=== PATIENT | female | born 1980 | race Caucasian/White ===

== ENCOUNTER 2018-08-02 20:24 | Emergency (ER) | payer OTHER ==
[2018-08-02 20:30] VITALS: BP 104/62; PULSE 83; TEMP 98.3; BMI 19.3
[2018-08-02] MEDS ORDERED: PANTOPRAZOLE 40 MG TABLET (FP) PO ONE (21:28)
[2018-08-02] MEDS ORDERED: RANITIDINE HCL 150 MG TABLET (FP) PO ONE (21:28)
--- NOTE | 2018-08-02 21:36 | PDOC ---
History of Present Illness - General History Source: Patient Exam Limitations: No Limitations <Juan Diaz - Last Filed: 08/02/18 21:39> - History of Present Illness Initial Comments: 08/02/18 21:42 The patient is a 38 year old female, with no significant PMH, who presents to the emergency department with 1 month of intermittent epigastric pain. The patient states the intermittent epigastric pain begins approx 1-2 hours after eating, described as a burning pain and radiates to her back. The patient states she was recently treated for H. pylori and completed her antibiotics 4 days ago on Sunday with relief of her symptoms. However, the patient states since finishing the antibiotics she has began to experience the intermittent epigastric pain which she states feels exactly the same as her prior symptoms. The patient denies chest pain, shortness of breath, headache and dizziness. Denies fever, chills, nausea, vomit, diarrhea and constipation. Denies dysuria, frequency, urgency and hematuria. Allergies: NKA <Mohinder Craven - Last Filed: 08/02/18 21:50> - General Chief Complaint: Pain Stated Complaint: ABDOMINAL PAIN Time Seen by Provider: 08/02/18 20:47 Past History - Past Medical History Asthma: No Cancer: No Cardiac Disorders: No COPD: No Diabetes: No HTN: No Seizures: No Thyroid Disease: No - Reproductive History (#): 1 Para: 1 - Suicide/Smoking/Psychosocial Hx Smoking History: Never smoked Hx Alcohol Use: No Drug/Substance Use Hx: No Hx Substance Use Treatment: No <Juan Diaz - Last Filed: 08/02/18 21:39> <Mohinder Craven - Last Filed: 08/02/18 21:50> - Past Medical History Allergies/Adverse Reactions: Allergies Allergy/AdvReac Type Severity Reaction Status Date / Time No Known Allergies Allergy Verified 08/02/18 20:30 Home Medications: Ambulatory Orders Ferrous Gluconate [Iron] 256 mg PO BID 08/27/16 Vit No.130/Iron/Folic [ Vitamins] 1 each PO DAILY 08/27/16 Ibuprofen [Motrin -] 600 mg PO QID #28 tablet 09/03/16 Famotidine [Pepcid] 20 mg PO BID PRN #20 tablet 08/02/18 Pantoprazole Sodium [Protonix] 40 mg PO DAILY #30 tablet. 08/02/18 Review of Systems - Review of Systems Comments:: 08/02/18 21:42 GENERAL/CONSTITUTIONAL: No fever or chills. No weakness. HEAD, EYES, EARS, NOSE AND THROAT: No change in vision. No ear pain or discharge. No sore throat. CARDIOVASCULAR: No chest pain or shortness of breath. RESPIRATORY: No cough, wheezing, or hemoptysis. GASTROINTESTINAL: (+) Epigastric abdominal pain. No nausea, vomiting, diarrhea or constipation. GENITOURINARY: No dysuria, frequency, or change in urination. MUSCULOSKELETAL: No joint or muscle swelling or pain. No neck or back pain. SKIN: No rash NEUROLOGIC: No headache, vertigo, loss of consciousness, or change in strength/ sensation. ENDOCRINE: No increased thirst. No abnormal weight change. HEMATOLOGIC/LYMPHATIC: No anemia, easy bleeding, or history of blood clots. ALLERGIC/IMMUNOLOGIC: No hives or skin allergy. <Mohinder Craven - Last Filed: 08/02/18 21:50> *Physical Exam - Vital Signs Last Vital Signs Temp Pulse Resp BP Pulse Ox 98.3 F 83 18 104/62 99 08/02/18 20:26 08/02/18 20:26 08/02/18 20:26 08/02/18 20:26 08/02/18 20:26 <Juan Diaz - Last Filed: 08/02/18 21:39> - Vital Signs Last Vital Signs Temp Pulse Resp BP Pulse Ox 98.3 F 83 18 104/62 99 08/02/18 20:26 08/02/18 20:26 08/02/18 20:26 08/02/18 20:26 08/02/18 20:26 - Physical Exam Comments: 08/02/18 21:42 GENERAL: Awake, alert, and fully oriented, in no acute distress HEAD: No signs of trauma EYES: PERRLA, EOMI, sclera anicteric, conjunctiva clear ENT: Auricles normal inspection, hearing grossly normal, nares patent, oropharynx clear without exudates. Moist mucosa NECK: Normal ROM, supple, no lymphadenopathy, JVD, or masses LUNGS: Breath sounds equal, clear to auscultation bilaterally. No wheezes, and no crackles HEART: Regular rate and rhythm, normal S1 and S2, no murmurs, rubs or gallops ABDOMEN: (+) Tenderness to palpation epigastric region. Soft, normoactive bowel sounds. No guarding, no rebound. No masses. [place] sign negative. EXTREMITIES: Normal range of motion, no edema. No clubbing or cyanosis. No cords, erythema, or tenderness NEUROLOGICAL: Cranial nerves II through XII intact. Normal speech, normal gait SKIN: Warm, Dry, normal turgor, no rashes or lesions noted. <Mohinder Craven - Last Filed: 08/02/18 21:50> Medical Decision Making - Medical Decision Making 08/02/18 21:39 A portion of this note was documented by scribe services under my direction. I have reviewed the details of the note, within reason, and agree with the documentation with the following case summary and management plan written by me. Patient treated in the ED. Nursing notes are reviewed and incorporated into the medical decision-making. Vital signs reviewed. Vital Signs Temp Pulse Resp BP Pulse Ox 98.3 F 83 18 104/62 99 08/02/18 20:26 08/02/18 20:26 08/02/18 20:26 08/02/18 20:26 08/02/18 20:26 38-year-old female patient with no medical history presents with epigastric pain. The patient has been under treatment for H. pylori and has completed her Triple Antibiotic therapy 4 days ago. She reports that the pain she was expressing today is exactly the same prior to her treatments. She reports that she felt significantly better with the medications. However, ever since stopping , she reports a running-like sensation and a metal-like taste in her throat. She reports that every time she eats, one or 2 hours later she started developing some epigastric discomfort. Denies right upper quadrant pain. Never had an endoscopy. Patient attempted to make a follow-up appointment with her doctor but they only have appointments on Sunday and Sunday. I strongly suspect that this is likely gastritis or peptic ulcer disease or gastric ulcer. Patient is not currently taking any medications. After lengthy discussion, I advised the patient should follow with an endoscopy. We'll initiate her on Protonix and Pepcid. I advised patient that if the pain is recurrent or worsens despite the medications that she should return to the ER. She verbalizes understanding and agrees with plan. <Juan Diaz - Last Filed: 08/02/18 21:39> *DC/Admit/Observation/Transfer <Juan Diaz - Last Filed: 08/02/18 21:39> - Attestations Scribe Attestion: 08/02/18 21:42 Documentation prepared by Mohinder Craven, acting as medical coding instructor for Juan Diaz MD. <Mohinder Craven - Last Filed: 08/02/18 21:50> Diagnosis at time of Disposition: Gastritis Qualifiers: Gastritis type: other gastritis Chronicity: acute Gastritis bleeding: without bleeding Qualified Code(s): K29.00 - Acute gastritis without bleeding - Discharge Dispostion Disposition: HOME Condition at time of disposition: Stable - Prescriptions Prescriptions: Famotidine [Pepcid] 20 mg PO BID PRN #20 tablet PRN Reason: GERD Pantoprazole Sodium [Protonix] 40 mg PO DAILY #30 tablet.dr - Referrals Referrals: Tomi Acosta MD [Staff Physician] - - Patient Instructions Printed Discharge Instructions: DI for Gastritis Additional Instructions: Please take 40 mg protonix daily. For additional relief, take a tablet of zantac every 12 hours as needed. Please make an appointment with a GI physician. Please minimize spicy and heavy, greasy foods. If you have uncontrollable pain, please return to the ER. Print Language: M[place]GR[place]
[2018-08-02] MEDS ORDERED: PANTOPRAZOLE 40 MG TABLET (FP) ONE (21:44)
[2018-08-02] MEDS ORDERED: RANITIDINE HCL 150 MG TABLET (FP) ONE (21:44)
== END 2018-08-02 21:58 | disposition home or self-care (01) ==
LOC: JER 20:24
DX: K29.00 Acute gastritis without bleeding (principal)
CPT/HCPCS: 99281-25

== ENCOUNTER 2018-11-14 23:26 | Emergency (ER) | payer OTHER ==
[2018-11-14 23:49] VITALS: BP 102/60; PULSE 75; TEMP 98; BMI 19.3
--- NOTE | 2018-11-15 00:21 | PDOC ---
History of Present Illness - General Chief Complaint: Pain Stated Complaint: ABDOMINAL PAIN Time Seen by Provider: 11/14/18 23:57 - History of Present Illness Initial Comments: Luz Martin is an otherwise healthy 38yo woman who presents with abdominal pain, worst in the RUQ, and nausea since yesterday. She reports that she has a history of gastritis/heartburn, but this feels that this is much worse than normal and in a different location. Usually, she has epigastric pain that improves when she eats then returns several hours later. This time, she has more severe pain that has waxed/waned throughout the day. The pain is worst in the RUQ, and she has associated nausea. She has not vomited and does not have a fever. Due to the nausea, she has not eaten much today. She reports that this pain first started yesterday. The day before, she had a headache and took ibuprofen several times, most recently yesterday morning. She then started to have the upper abdominal pain. She initially thought that she might need to have a BM, but she was unable to go at that time. However, she denies any diarrhea or constipation over the past few days and says that she has been having normal bowel movements. She also has no urinary symptoms. Other than the current pain, she has no chronic or recent complaints. Past History - Past Medical History Allergies/Adverse Reactions: Allergies Allergy/AdvReac Type Severity Reaction Status Date / Time No Known Allergies Allergy Verified 11/14/18 23:49 Home Medications: Ambulatory Orders Ferrous Gluconate [Iron] 256 mg PO BID 08/27/16 Vit No.130/Iron/Folic [ Vitamins] 1 each PO DAILY 08/27/16 Ibuprofen [Motrin -] 600 mg PO QID #28 tablet 09/03/16 Famotidine [Pepcid] 20 mg PO BID PRN #20 tablet 08/02/18 Pantoprazole Sodium [Protonix] 40 mg PO DAILY #30 tablet. 08/02/18 Asthma: No Cancer: No Cardiac Disorders: No COPD: No Diabetes: No HTN: No Seizures: No Thyroid Disease: No - Reproductive History (#): 1 Para: 1 - Suicide/Smoking/Psychosocial Hx Smoking History: Never smoked Have you smoked in the past 12 months: No Information on smoking cessation initiated: No Hx Alcohol Use: No Drug/Substance Use Hx: No Hx Substance Use Treatment: No Review of Systems - Review of Systems Comments:: General: No fevers, no chills, no weight or appetite change, no malaise HEENT: No changes in vision, no changes in hearing, no congestion, no sore throat CV: No chest pain, no palpitations, no LE edema Pulm: No SOB, no cough, no wheezing GI: +nausea, +RUQ pain, no change in bowel habits, no melena : No frequency, no urgency, no dysuria Musc: No back pain, no joint swelling, no recent injury Skin: No rash, no lesions, no erythema Endo: No excessive thirst, no heat/cold intolerance Heme: No unusual bruising or bleeding, no swollen glands Neuro: No syncope, no numbness/tingling, no focal weakness Vasc: No claudication Psych: No recent change in mood, no SI or HI *Physical Exam - Vital Signs Last Vital Signs Temp Pulse Resp BP Pulse Ox 98.0 F 75 16 102/60 100 11/14/18 23:47 11/14/18 23:47 11/14/18 23:47 11/14/18 23:47 11/14/18 23:47 - Physical Exam Comments: General: Comfortable, no acute distress HEENT: PERRL, EOMI, MMM, voice normal, normal neck ROM, no LAD Cards: RRR, no murmur appreciated Pulm: Comfortable on room air, clear to auscultation bilaterally Abd: Soft, nondistended. Some epigastric TTP, significant TTP in RUQ. No rigidity, no involuntary guarding : No CVA tenderness Ext: Atraumatic. No LE edema. ROM intact. Strength 5/5 and equal bilaterally Vasc: Extremities WWP. Palpable radial and pedal pulses bilaterally Skin: Normal color, no rashes or lesions Neuro: A&Ox3, CN grossly intact, normal speech, motor/sensory grossly intact and symmetric Psych: Mood appropriate to situation Moderate Sedation - Procedure Monitoring Vital Signs: Procedure Monitoring Vital Signs Temperature 98.0 F 11/14/18 23:47 Pulse Rate 75 11/14/18 23:47 Respiratory Rate 16 11/14/18 23:47 Blood Pressure 102/60 11/14/18 23:47 O2 Sat by Pulse Oximetry (%) 100 11/14/18 23:47 ED Treatment Course - LABORATORY CBC & Chemistry Diagram: 11/15/18 01:17 11/15/18 01:17 - RADIOLOGY Radiology Studies Ordered: Category Date Time Status ABDOMEN US -LIMITED [US] Stat Ultrasound 11/15/18 00:17 Ordered Medical Decision Making - Medical Decision Making 11/15/18 00:18 Luz Martin is an otherwise healthy 38yo woman who presents with abdominal pain, worst in the RUQ, and nausea since yesterday. - Previously diagnosed with gastritis, but she reports that this is different than her gastritis. More severe and in a different location. - May be due to known GERD v gastritis, was previously treated for h pylori and took ibuprofen several times 2 days ago for SARKAR prior to pain starting. However, given location of the pain could be cholecystitis, pancreatitis. No acute abdomen suggesting perforated ulcer. Unlikely to be cardiac in a young, otherwise healthy woman. - CBC, CMP, mag, phos, lipase, amylase, UA, urine preg, abd US ordered 11/15/18 01:19 - US completed. Shows multiple gallstones, largest 9mm. No wall thickening, no pericolesystic fluid, no duct dilation, no sonographic duron's sign - Labs pending, but will most likely d/c home with surgery follow up 11/15/18 02:00 - Acetaminophen ordered for continued pain - Labs completed. No abnormalities noted, no elevated bilirubin or LFTs. - Will d/c home with instructions for home care and surgery follow up. Discussed with Dr Bailey. Bree Camp PGY1 *DC/Admit/Observation/Transfer Diagnosis at time of Disposition: Cholelithiasis - Discharge Dispostion Disposition: HOME Condition at time of disposition: Stable Decision to Admit order: No - Referrals Referrals: [facility] [Provider Group] - Patient Instructions Printed Discharge Instructions: DI for Gallstones Additional Instructions: Discharge Instructions: - You were seen in the emergency department for abdominal pain. - You were found to have stones in your gallbladder. These stones can move around and cause pain if they block the duct out of the gallbladder. However, there is no sign of infection that would require antibiotics or surgery. - You may use over the counter medications such as acetaminophen (Tylenol) 650- 1000mg every 6-8 hours as needed for pain. Avoid ibuprofen (Advil, Motrin) and naproxen (Aleve) as you have a history of gastritis, and these can cause stomach irritation. - Avoid high-fat foods - You have been referred to [facility], Dr Ferrer or Dr De Anda, for follow up. You can make an appointment with them if your symptoms continue or worsen. - Seek immediate medical care if your symptoms worsen, your pain becomes constant, you develop fevers to 101F, or you start vomiting. Instrucciones de descarga: - Fuiste atendido en el servicio de urgencias por dolor abdominal. - Se encontr que fidel piedras en la vescula biliar. Estas piedras pueden moverse y causar dolor si bloquean el conducto que sale de la vescula biliar. Sin embargo, no hay signos de infeccin que requieran antibiticos o ciruga. - Puede usar medicamentos de venta samantha manny el paracetamol (Tylenol) 650- 1000mg cada 6-8 horas segn sea necesario para el dolor. Evite el ibuprofeno ( Advil, Motrin) y el naproxeno (Aleve) ya que tiene antecedentes de gastritis, que pueden causar irritacin estomacal. - Evite los alimentos altos en grasa - Se le sarkar remitido a [facility], al Dr. Ferrer o al Dr. De Anda, para weiss seguimiento. Puede hacer jose ulises con ellos si umm sntomas continan o empeoran. - Busque atencin mdica inmediata si umm sntomas empeoran, weiss dolor se vuelve opal, desarrolla fiebre hasta 101F o comienza a vomitar Print Language: PERSIAN - Post Discharge Activity Forms/Work/School Notes: Back to Work
--- NOTE | 2018-11-15 01:13 | PDOC ---
Attending Attestation - Resident Resident Name: Bree Camp - ED Attending Attestation I have performed the following: I have examined & evaluated the patient, The case was reviewed & discussed with the resident, I agree w/resident's findings & plan, Exceptions are as noted - HPI HPI: 11/15/18 01:24 38F no pmh here with RUQ abdominal pain a/w nausea since yesterday, px is constant, not associated with meals, no other complaints - Physicial Exam PE: 11/15/18 01:25 Agree with exam as documented by resident - Medical Decision Making 11/15/18 01:25 consider gastritis, rashida, pancreatitis f/u us, labs dispo per clinical course 11/15/18 07:20 us shows cholelithiasis w/o cholecystitis pain resolved f/u with gen surg clinic
[2018-11-15 01:26] LABS: BASO % 0.4 % (0-2.0); HEMATOCRIT 32.5 % (32.4-45.2); HEMOGLOBIN 11.1 GM/dL (10.7-15.3); LYMPH % 20.7 % (8-40); MCH 29.1 pg (25.7-33.7); MCHC 34.2 g/dl (32.0-36.0); MEAN CELL VOLUME 84.9 fl (80-96); MEAN PLT VOLUME 7.9 fl (7.5-11.1); NEUT % 67.9 % (42.8-82.8); PLATELET COUNT 240 K/MM3 (134-434); RBC 3.82 M/mm3 (3.60-5.2); RDW 13.7 % (11.6-15.6); WHITE BLOOD COUNT 6.1 K/mm3 (4.0-10.0)
[2018-11-15] MEDS ORDERED: ACETAMINOPHEN 325 MG TABLET (FP) PO ONE (01:48)
[2018-11-15 01:54] LABS: ALBUMIN 3.9 g/dl (3.4-5.0); ALK PHOS 89 U/L (45-117); AMYLASE 64 U/L (25-115); ANION GAP 6 MMOL/L (8-16); BILIRUBIN,TOTAL 0.3 mg/dL (0.2-1); BLOOD UREA NITROGEN 7 mg/dL (7-18); CALCIUM 8.5 mg/dL (8.5-10.1); CHLORIDE 104 mmol/L (98-107); CO2 28 mmol/L (21-32); CREATININE 0.5 mg/dL (0.55-1.3); GLUCOSE,RANDOM 91 mg/dL (74-106); LIPASE 100 U/L (73-393); MAGNESIUM 2.1 mg/dL (1.8-2.4); PHOSPHOROUS 3.3 mg/dL (2.5-4.9); POTASSIUM 3.7 mmol/L (3.5-5.1); SGOT/AST 16 U/L (15-37); SGPT/ALT 22 U/L (13-61); SODIUM 138 mmol/L (136-145); TOT PROT 7.3 g/dl (6.4-8.2)
[2018-11-15] MEDS ORDERED: ACETAMINOPHEN 325 MG TABLET (FP) ONE (01:54)
[2018-11-15 09:43] LABS: HCG,QUALITATIVE URINE Negative
[2018-11-15 09:49] LABS: URINE APPEARANCE CLEAR; URINE BILIRUBIN NEGATIVE (<2.0 mg/dL); URINE COLOR YELLOW; URINE GLUCOSE (UA) NEGATIVE (NEGATIVE); URINE KETONE 1+ (NEGATIVE); URINE LEUK ESTERASE NEGATIVE (NEGATIVE); URINE NITRITE NEGATIVE (NEGATIVE); URINE PROTEIN NEGATIVE (NEGATIVE); URINE UROBILINOGEN NEGATIVE mg/dL (0.2-1.0)
== END 2018-11-15 02:30 | disposition home or self-care (01) ==
LOC: JER 23:26
DX: K80.20 Calculus of gallbladder without cholecystitis without obstruction (principal)
CPT/HCPCS: 36415; 76705-TC; 80053; 81003; 82150; 83690; 83735; 84100; 84703; 85025; 99281-25

== ENCOUNTER 2019-06-17 22:27 | Emergency (ER) | payer OTHER ==
[2019-06-17 22:35] VITALS: BP 90/46; PULSE 82; TEMP 98.2; BMI 19.3
--- NOTE | 2019-06-17 23:05 | PDOC ---
History of Present Illness - General Chief Complaint: Urinary Problem Stated Complaint: PAIN WHEN URINATING Time Seen by Provider: 06/17/19 23:00 History Source: Patient - History of Present Illness Initial Comments: 06/17/19 23:03 39 year old c/o urgency , dysuria and frequency with suprapubic pain. denies fever/ chills. patient reports throbbing to b/l flank area. denies NVD, abdominal pain denies pmhx Past History - Past Medical History Allergies/Adverse Reactions: Allergies Allergy/AdvReac Type Severity Reaction Status Date / Time No Known Allergies Allergy Verified 06/17/19 22:35 Home Medications: Ambulatory Orders Ferrous Gluconate [Iron] 256 mg PO BID 08/27/16 Vit No.130/Iron/Folic [ Vitamins] 1 each PO DAILY 08/27/16 Ibuprofen [Motrin -] 600 mg PO QID #28 tablet 09/03/16 Famotidine [Pepcid] 20 mg PO BID PRN #20 tablet 08/02/18 Pantoprazole Sodium [Protonix] 40 mg PO DAILY #30 tablet. 08/02/18 Cefuroxime Axetil [Ceftin -] 500 mg PO Q12H #20 tablet 06/18/19 Phenazopyridine HCl [Pyridium] 100 mg PO TID #6 tablet 06/18/19 Asthma: No Cancer: No Cardiac Disorders: No COPD: No Diabetes: No HTN: No Seizures: No Thyroid Disease: No - Reproductive History (#): 1 Para: 1 - Suicide/Smoking/Psychosocial Hx Smoking History: Unknown if ever smoked Have you smoked in the past 12 months: No Information on smoking cessation initiated: No Hx Alcohol Use: No Drug/Substance Use Hx: No Hx Substance Use Treatment: No Review of Systems - Review of Systems Able to Perform ROS?: Yes Is the patient limited [place] proficient: No Constitutional: No: Symptoms Reported, See HPI, Chills, Diaphoresis, Fever, Loss of Appetite, Malaise, Night Sweats, Weakness, Weight Stable, Unintentional Wgt. Loss, Unexplained wgt Loss, Other ABD/GI: No: Symptoms Reported, See HPI, Abdominal Distended, Abd. Pain w/ defecation, Blood Streaked Bowels, Constipated, Diarrhea, Difficulty Swallowing , Nausea, Poor Appetite, Poor Fluid Intake, Rectal Bleeding, Vomiting, Indigestion, Abdominal cramping, Tarry Stools, Other : Yes: Burning, Dysuria, Frequency, Flank Pain, Urgency Musculoskeletal: No: Symptoms Reported, See HPI, Back Pain, Gout, Joint Pain, Joint Swelling, Muscle Pain, Muscle Weakness, Neck Pain, Joint Stiffness, Other *Physical Exam - Vital Signs Last Vital Signs Temp Pulse Resp BP Pulse Ox 98.2 F 82 16 90/46 L 100 06/17/19 22:33 06/17/19 22:33 06/17/19 22:33 06/17/19 22:33 06/17/19 22:33 - Physical Exam General Appearance: Yes: Appropriately Dressed Respiratory/Chest: positive: Lungs Clear, Normal Breath Sounds Cardiovascular: positive: Regular Rhythm (at is), Regular Rate Gastrointestinal/Abdominal: positive: Normal Bowel Sounds, Soft, Other (+ suprapubic pain) Musculoskeletal: positive: CVA Tenderness (R) Extremity: positive: Normal Capillary Refill, Normal Inspection, Normal Range of Motion Integumentary: positive: Normal Color, Dry, Warm Neurologic: positive: Fully Oriented, Alert, Normal Mood/Affect Progress Note - Progress Note Progress Note: Urinary symptoms r/o UTI P: UA urine culture *DC/Admit/Observation/Transfer Diagnosis at time of Disposition: UTI (urinary tract infection) Qualifiers: Urinary tract infection type: acute cystitis Hematuria presence: without hematuria Qualified Code(s): N30.00 - Acute cystitis without hematuria - Discharge Dispostion Disposition: HOME - Prescriptions Prescriptions: Cefuroxime Axetil [Ceftin -] 500 mg PO Q12H #20 tablet Phenazopyridine HCl [Pyridium] 100 mg PO TID #6 tablet - Referrals Referrals: Tone Bustos MD [Primary Care Provider] - Call tomorrow - Patient Instructions Printed Discharge Instructions: Urinary Tract Infection Additional Instructions: Drink plenty of fluids Take ibuprofen every 6 hours as needed for pain You may take Pyridium for the burning of urination. it can turn your urine orange and can make you sweat orange Take cefuroxime as prescribed Follow-up with your primary care doctor as soon as possible. You need to repeat urine test once your antibiotic is completed. We will call you if you're antibiotic needs to be changed.\ - Post Discharge Activity Forms/Work/School Notes: Back to Work
--- NOTE | 2019-06-17 23:06 | PDOC ---
*Physical Exam - Vital Signs Last Vital Signs Temp Pulse Resp BP Pulse Ox 98.2 F 82 16 90/46 L 100 06/17/19 22:33 06/17/19 22:33 06/17/19 22:33 06/17/19 22:33 06/17/19 22:33 Medical Decision Making - Medical Decision Making 06/17/19 23:06 Patient seen by the advanced practice provider under my direct supervision. Ancillary testing reviewed as necessary. I agree with plan as outlined by the advanced practice provider. *DC/Admit/Observation/Transfer Diagnosis at time of Disposition: Dysuria - Referrals Referrals: Tone Bustos MD [Primary Care Provider] - - Patient Instructions - Post Discharge Activity
[2019-06-18 00:53] LABS: URINE APPEARANCE CLOUDY; URINE BILIRUBIN NEGATIVE (NEGATIVE); URINE COLOR YELLOW; URINE GLUCOSE (UA) NEGATIVE (NEGATIVE); URINE KETONE NEGATIVE (NEGATIVE)
[2019-06-18 00:54] LABS: URINE LEUK ESTERASE 3+ (NEGATIVE); URINE NITRITE NEGATIVE (NEGATIVE); URINE PROTEIN 1+ (NEGATIVE); URINE UROBILINOGEN 0.2 mg/dL (0.2-1.0)
[2019-06-18] MEDS ORDERED: CEFUROXIME AXETIL 500 MG TABLET PO ONE (01:14)
[2019-06-18] MEDS ORDERED: ACETAMINOPHEN 325 MG TABLET (FP) PO ONE (01:15)
[2019-06-18] MEDS ORDERED: PHENAZOPYRIDINE HCL 100 MG TABLET (FP) PO ONE (01:15)
[2019-06-18] MEDS ORDERED: ACETAMINOPHEN 325 MG TABLET (FP) ONE (02:16)
[2019-06-18] MEDS ORDERED: PHENAZOPYRIDINE HCL 100 MG TABLET (FP) ONE (02:17)
[2019-06-18 06:19] LABS: URINE WBC 60 (NEGATIVE)
[2019-06-18 06:20] LABS: EPI CELLS 3 /HPF; HYALINE CASTS NONE SEEN /lpf; URINE BACTERIA 3+ /hpf (NEGATIVE); URINE RBC 40 /hpf (0-4)
[2019-06-18 06:21] LABS: URINE CRYSTALS NONE SEEN /hpf (NEGATIVE); YEAST NONE SEEN
== END 2019-06-18 02:50 | disposition home or self-care (01) ==
LOC: JER 22:27
DX: N30.00 Acute cystitis without hematuria (principal)
CPT/HCPCS: 81003; 84703; 87077; 87086; 99282-25

== ENCOUNTER 2023-12-25 18:13 | Emergency (ER) | payer OTHER ==
[2023-12-25 18:33] VITALS: BP 114/52; PULSE 77; RESP 16; TEMP 97.6; BMI 27.4
[2023-12-25] MEDS ORDERED: KETOROLAC TROMETHAMINE 30 MG/1 ML VIAL ONE (19:54)
[2023-12-25] MEDS: KETOROLAC TROMETHAMINE 30 MG/1 ML VIAL IVPUSH ONE (20:08)
[2023-12-25 20:17] LABS: BASO % 0.5 % (0-2.0); EOS % 0.5 % (0-4.5); HEMATOCRIT 33.7 % (32.4-45.2); HEMOGLOBIN 10.6 GM/dL (10.7-15.3); MCH 24.8 pg (25.7-33.7); MCHC 31.6 g/dl (32.0-36.0); MEAN CELL VOLUME 78.7 fl (80-96); MEAN PLT VOLUME 8.1 fl (7.5-11.1); MONO % 5.4 % (3.8-10.2); NEUT % 79.6 % (42.8-82.8); PLATELET COUNT 314 10^3/uL (134-434); RBC 4.28 M/mm3 (3.60-5.2); WHITE BLOOD COUNT 8.3 K/mm3 (4.0-10.0)
[2023-12-25 20:19] LABS: PH,URINE 6.5 (5.0-8.0); URINE APPEARANCE CLEAR; URINE BILIRUBIN NEGATIVE (NEGATIVE); URINE COLOR YELLOW; URINE GLUCOSE (UA) NEGATIVE (NEGATIVE); URINE KETONE NEGATIVE (NEGATIVE); URINE LEUK ESTERASE NEGATIVE (NEGATIVE); URINE NITRITE NEGATIVE (NEGATIVE); URINE PROTEIN NEGATIVE (NEGATIVE); URINE UROBILINOGEN 0.2 mg/dL (0.2-1.0)
[2023-12-25 20:44] LABS: POTASSIUM 4.1 mmol/L (3.5-5.1)
[2023-12-25 20:46] LABS: CALCIUM 9.2 mg/dL (8.5-10.1)
[2023-12-25 20:50] LABS: CREATININE 0.5 mg/dL (0.55-1.3)
[2023-12-25 20:51] LABS: BILIRUBIN,TOTAL 0.3 mg/dL (0.2-1)
[2023-12-25 20:52] LABS: TOT PROT 7.9 g/dl (6.4-8.2)
== END 2023-12-25 23:00 | disposition home or self-care (01) ==
LOC: JER 18:13
PROC: 3E0333Z Introduction of Anti-inflammatory into Peripheral Vein, Percutaneous Approach (ICD-10-PCS; principal; 2023-12-25)
DX: K80.20 Calculus of gallbladder without cholecystitis without obstruction (principal); R10.11 Right upper quadrant pain
CPT/HCPCS: 36415; 76705-TC; 80053; 81003; 84703; 85025; 96374; 99284-25

== ENCOUNTER 2023-12-27 10:38 | Day surgery (SDC) | payer OTHER ==
[2023-12-27 11:50] LABS: PH,URINE 5.5 (5.0-8.0); URINE APPEARANCE CLEAR; URINE BILIRUBIN NEGATIVE (NEGATIVE); URINE COLOR YELLOW; URINE GLUCOSE (UA) NEGATIVE (NEGATIVE); URINE KETONE NEGATIVE (NEGATIVE); URINE LEUK ESTERASE NEGATIVE (NEGATIVE); URINE NITRITE NEGATIVE (NEGATIVE); URINE PROTEIN NEGATIVE (NEGATIVE); URINE UROBILINOGEN 0.2 mg/dL (0.2-1.0)
[2023-12-27 11:55] LABS: HCG,QUALITATIVE URINE Negative
[2023-12-27 11:55] LABS: BASO % 1.1 % (0-2.0); EOS % 0.9 % (0-4.5); HEMATOCRIT 30.3 % (32.4-45.2); HEMOGLOBIN 10.2 GM/dL (10.7-15.3); LYMPH % 37.7 % (8-40); MCHC 33.7 g/dl (32.0-36.0); MEAN CELL VOLUME 77.1 fl (80-96); MEAN PLT VOLUME 7.9 fl (7.5-11.1); NEUT % 50.3 % (42.8-82.8); PLATELET COUNT 288 10^3/uL (134-434); RBC 3.93 M/mm3 (3.60-5.2); RDW 16.1 % (11.6-15.6)
[2023-12-27 12:18] LABS: POTASSIUM 4.3 mmol/L (3.5-5.1)
[2023-12-27 12:21] LABS: CALCIUM 9.1 mg/dL (8.5-10.1)
[2023-12-27 12:24] LABS: CREATININE 0.7 mg/dL (0.55-1.3)
[2023-12-27 12:27] LABS: BILIRUBIN,TOTAL 0.7 mg/dL (0.2-1); TOT PROT 7.5 g/dl (6.4-8.2)
[2023-12-27] MEDS: SODIUM CHLORIDE 0.9% 1000 ML INFUS.BAG IV ONE (15:14)
[2023-12-27] MEDS ORDERED: oxyCODONE HCL 5 MG TABLET PO PRN ×3 (15:34→17:32)
[2023-12-27] MEDS ORDERED: PROMETHAZINE HCL 25 MG/1 ML VIAL IVPB PRN ×2 (15:34→17:32)
[2023-12-27] MEDS ORDERED: ONDANSETRON 4 MG/2 ML VIAL IVPUSH PRN ×2 (15:34→17:32)
[2023-12-27] MEDS ORDERED: PROPOFOL 20 ML ONE (15:39)
[2023-12-27] MEDS ORDERED: ROCURONIUM BROMIDE 50 MG/5 ML SYRINGE ONE (15:40)
[2023-12-27] MEDS ORDERED: SEVOFLURANE 250 ML BTL ONE (15:41)
[2023-12-27] MEDS ORDERED: ONDANSETRON 4 MG/2 ML VIAL ONE (15:47)
[2023-12-27] MEDS ORDERED: LIDOCAINE HCL/PF 2% SDV 5ML VIAL ONE (15:47)
[2023-12-27] MEDS ORDERED: DEXAMETHASONE SOD PHOSPHATE 4 MG/1 ML VIAL ONE (15:47)
[2023-12-27] MEDS ORDERED: KETOROLAC TROMETHAMINE 30 MG/1 ML VIAL ONE (15:50)
[2023-12-27] MEDS ORDERED: MIDAZOLAM HCL 2 MG/2 ML SINGLE DOSE VIAL ONE (15:50)
[2023-12-27 15:52] LABS: INR 1.1 (0.83-1.09); PROTHROMBIN TIME (PATIENT) 12.7 SEC (9.7-13.0)
[2023-12-27 15:54] LABS: ACTIVATED PTT 31.5 SECONDS (25.2-36.5)
[2023-12-27] MEDS ORDERED: INDOCYANINE GREEN 25 MG/10 ML VIAL IVPUSH ONE (16:04)
[2023-12-27] MEDS ORDERED: cefOXitin SODIUM 2 GM VIAL (RESTRICTED TO ID) IVPB ONE (16:04)
[2023-12-27] MEDS ORDERED: HEPARIN NA (PORCINE) 5,000 UNITS/ML 1ML VIAL ONE (16:13)
[2023-12-27] MEDS: cefoTEtan DISODIUM 2 GM VIAL (RESTRICTED TO ID) IVPB ONE (16:20)
[2023-12-27] MEDS: BUPIVACAINE HCL/PF 0.25% (2.5MG/ML) 10 ML VIAL IJ ONE (16:45)
[2023-12-27] MEDS: LACTATED RINGERS SOLUTION 1,000 ML IV SCH ×2 (17:32→21:05)
[2023-12-27] MEDS: ACETAMINOPHEN 325 MG TABLET (FP) PO SCH (17:32)
[2023-12-27] MEDS ORDERED: ACETAMINOPHEN INJECTION 100 ML IVPB ONE (18:07)
[2023-12-27] MEDS: ACETAMINOPHEN 1000 MG/100 ML BAG IVPB ONE (18:10)
[2023-12-27] MEDS: PIPERACILLIN/TAZOB 3.375 GM 3.375 GM in DEXTROSE 5%-WATER - 50 ML IVPB SCH (18:15)
[2023-12-27] MEDS: PIPERACILLIN/TAZOBACTAM 3.375 GM VIAL IVPB ONE (18:25)
[2023-12-27] MEDS: oxyCODONE HCL 5 MG TABLET PO PRN (22:00)
[2023-12-27 22:40] VITALS: RESP 16
[2023-12-28] MEDS: IBUPROFEN 600 MG TABLET (FP) PO SCH (00:18)
[2023-12-28 03:26] VITALS: BMI 22.6
[2023-12-28 09:13] LABS: BASO % 0.5 % (0-2.0); HEMATOCRIT 29.6 % (32.4-45.2); HEMOGLOBIN 9.6 GM/dL (10.7-15.3); LYMPH % 16.4 % (8-40); MCH 25.3 pg (25.7-33.7); MCHC 32.4 g/dl (32.0-36.0); MEAN CELL VOLUME 77.9 fl (80-96); MEAN PLT VOLUME 8.3 fl (7.5-11.1); MONO % 7.4 % (3.8-10.2); NEUT % 75.7 % (42.8-82.8); PLATELET COUNT 267 10^3/uL (134-434); WHITE BLOOD COUNT 6.3 K/mm3 (4.0-10.0)
[2023-12-28 09:33] VITALS: BP 94/59; PULSE 70; TEMP 98.4
[2023-12-28 09:39] LABS: POTASSIUM 3.9 mmol/L (3.5-5.1)
[2023-12-28 09:41] LABS: CALCIUM 8.6 mg/dL (8.5-10.1)
[2023-12-28 09:42] LABS: ALBUMIN 3.7 g/dl (3.4-5.0); BLOOD UREA NITROGEN 8.2 mg/dL (7-18)
[2023-12-28 09:46] LABS: CREATININE 0.6 mg/dL (0.55-1.3)
[2023-12-28 09:47] LABS: BILIRUBIN,TOTAL 0.6 mg/dL (0.2-1); TOT PROT 6.8 g/dl (6.4-8.2)
== END 2023-12-28 12:56 | disposition home or self-care (01) ==
LOC: JER 10:38 → UNDOADMOB 14:36 → JERBED 14:36 → J8W 19:44 → JASUSAT 12-28 08:32 → J8W 12-28 08:47 → JASUSAT 12-28 12:56
PROVIDERS: ATTEND Nurse Practitioner Family
PROC: 3E033GC Introduction of Other Therapeutic Substance into Peripheral Vein, Percutaneous Approach (ICD-10-PCS; 2023-12-27)
PROC: 3E033GC Introduction of Other Therapeutic Substance into Peripheral Vein, Percutaneous Approach (ICD-10-PCS; 2023-12-27)
PROC: 3E033GC Introduction of Other Therapeutic Substance into Peripheral Vein, Percutaneous Approach (ICD-10-PCS; 2023-12-27)
PROC: 3E030NZ Introduction of Analgesics, Hypnotics, Sedatives into Peripheral Vein, Open Approach (ICD-10-PCS; 2023-12-27)
PROC: 3E030GC Introduction of Other Therapeutic Substance into Peripheral Vein, Open Approach (ICD-10-PCS; 2023-12-27)
PROC: 3E030GC Introduction of Other Therapeutic Substance into Peripheral Vein, Open Approach (ICD-10-PCS; 2023-12-27)
PROC: 3E033GC Introduction of Other Therapeutic Substance into Peripheral Vein, Percutaneous Approach (ICD-10-PCS; principal; 2023-12-27 15:30)
DX: R10.811 Right upper quadrant abdominal tenderness (principal); R10.816 Epigastric abdominal tenderness; R11.0 Nausea; K80.20 Calculus of gallbladder without cholecystitis without obstruction
CPT/HCPCS: 36415; 71046-TC-FY; 76705-TC; 80053; 81003; 83690; 84703; 85025; 85610; 85730; 86850; 86900; 86901; 88304-TC; 93005; 93010; 94760; 99285-25; J0131; J1644